=== PATIENT | female | born 1965 | race Two or more races ===

== ENCOUNTER 2019-08-22 16:49 | Emergency (ER) | payer MEDICAID ==
[~2019-08-22] VITALS: Ht 157.5 cm; Wt 75.0 kg
[2019-08-22] MEDS ORDERED: HYDROCODONE/ACETAMINOPHEN 10/325MG TABLET PO ONE (17:45)
[2019-08-22 21:28] VITALS: BP 172/65
== END 2019-08-22 22:45 | disposition home or self-care (01) ==
LOC: ER 16:49
DX: S92.411A Displaced fracture of proximal phalanx of right great toe, initial encounter for closed fracture (principal); S92.424A Nondisplaced fracture of distal phalanx of right great toe, initial encounter for closed fracture; W17.89XA Other fall from one level to another, initial encounter; W20.8XXA Other cause of strike by thrown, projected or falling object, initial encounter; Y93.E9 Activity, other interior property and clothing maintenance; Y92.018 Other place in single-family (private) house as the place of occurrence of the external cause; I10 Essential (primary) hypertension; E11.9 Type 2 diabetes mellitus without complications
CPT/HCPCS: 28495; 73630; 73660; 99284; A4217